=== PATIENT | male | born 1945 | race Caucasian/White ===

== ENCOUNTER 2022-12-31 00:31 | Observation (INO) ==
[2022-12-31] MEDS ORDERED: GADOBENATE DIMEGLUMINE 20 ML/VIAL IV ONE (00:32)
[2022-12-31] MEDS ORDERED: IOPAMIDOL 100 ML BOTTLE IV ONE (00:32)
[2022-12-31] MEDS ORDERED: ONDANSETRON 4 MG/2 ML VIAL IV ONE ×2 (00:53→01:21)
[2022-12-31] MEDS ORDERED: ONDANSETRON 4 MG/2 ML VIAL ONE (00:56)
[2022-12-31] MEDS ORDERED: fentaNYL 100 MCG/2 ML VIAL IV ONE ×2 (01:20→04:17)
[2022-12-31] MEDS ORDERED: 0.9 % SODIUM CHLORIDE 1,000 ML IV ONE (01:20)
--- NOTE | 2022-12-31 01:37 | Emergency Department Note ---
Abdominal Pain HPI General Chief Complaint: Abdominal Pain Stated Complaint: gas pains Time Seen by Provider: 12/31/22 00:59 Source: patient Mode of arrival: ambulatory History of Present Illness HPI Narrative: Narrative: 77-year-old male with sudden onset of subxiphoid pain after going to bed tonight. He had eaten approximately 6 PM had no discomfort had a normal appetite. Since the pain occurred he has vomited x4. He denies hematemesis. His last normal bowel movement was today and he denies any melena or hematochezia. 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 Related Data Previous Rx's Medication Instructions Recorded nebulizer #1 ea 04/11/21 amlodipine 5 mg tablet 5 mg PO QDAY 90 days #90 tabs 01/22/22 hydrochlorothiazide 12.5 mg tablet 12.5 mg PO QDAY #90 tabs 01/22/22 losartan 100 mg tablet 100 mg PO QDAY 90 days #90 tabs 01/22/22 Breztri Aerosphere 160 2 inh inhalation BID #10.7 grams 07/11/22 mcg-9mcg-4.8mcg/actuation HFA aerosol inhaler (sextoypxvg-wrlfojiy-vyucdkbyrm) umeclidinium 62.5 mcg/actuation 1 inh inhalation QDAY #30 ea 07/20/22 blister powder for inhalation (Incruse Ellipta) omeprazole 20 mg capsule,delayed 20 mg PO QAM 90 days #90 caps 09/18/22 release albuterol sulfate 90 mcg/actuation 2 puff inhalation Q6H #8.5 grams 10/25/22 aerosol inhaler (ProAir HFA) dexamethasone 6 mg tablet 6 mg PO QDAY #10 tabs 11/06/22 albuterol sulfate 2.5 mg/3 mL 2.5 mg (3 mL) inhalation BID #180 11/30/22 (0.083 %) solution for nebulization mL Allergies Allergy/AdvReac Type Severity Reaction Status Date / Time Penicillins Allergy Unknown childhood Verified 11/06/22 10:49 reaction meloxicam AdvReac Intermediate Heartburn Verified 11/06/22 10:49 Review of Systems ROS ROS Narrative: Narrative: All systems ED: reviewed and negative except as stated. [facility] Narrative Patient History Narrative: Narrative: Medical/Surgical/Family History All Active Problems (Updated 12/31/22 @ 04:31 by Gomez Ugarte MD) Pancreatic mass (Acute) Lung nodules (Chronic) Nocturnal hypoxia (Chronic) Severe chronic obstructive pulmonary disease (Acute) Medicare annual wellness visit, subsequent (Acute) History of gastrointestinal stromal tumor (GIST) (Chronic) Erectile dysfunction (Chronic) Chronic back pain (Chronic) Essential hypertension (Chronic) History of tobacco abuse (Chronic) Obesity (Chronic) Osteoarthritis (Chronic) Alcohol abuse (Chronic) History of tonsillectomy (Chronic) History of open reduction and internal fixation (ORIF) procedure (Chronic) History of adenoidectomy (Chronic) Fracture tibia/fibula (Chronic) Radial fracture (Chronic) Patellar fracture (Chronic) Gastroesophageal reflux (Chronic) Chronic obstructive pulmonary disease (Chronic) Ankle fracture (Chronic) Medical History Alcohol abuse Ankle fracture Closed, L Chronic back pain Chronic obstructive pulmonary disease Erectile dysfunction Essential hypertension Fracture tibia/fibula Closed, L Gastroesophageal reflux History of gastrointestinal stromal tumor (GIST) Laparotomy February 2020. History of tobacco abuse Lung nodules Medicare annual wellness visit, subsequent Obesity Osteoarthritis Patellar fracture Closed, L Radial fracture Closed, L Severe chronic obstructive pulmonary disease Surgical History History of adenoidectomy History of open reduction and internal fixation (ORIF) procedure L knee/L LE/L ankle - accident History of surgery (~02/26/20) Excision of malignant tumor of stomach by Dr. Pete Toledo History of tonsillectomy Family History Mother , at 84Y Essential hypertension Congestive heart failure Father , at 49Y Motor vehicle accident Sister Diabetes mellitus Social History Smoking Status: Former smoker Alcohol Intake Frequency: 2+ drinks per day Substance Use: does not use Exam Narrative Narrative: Narrative: General: No acute distress alert and oriented x3 answers questions cogently. Skin hyperpigmented redundant skin folds subsequent to losing weight after his GIST tumor was removed midline scar consistent with history no exanthems. Abdomen positive bowel sounds soft tender in the supraumbilical area without rebound CVA or psoas tenderness no masses no hepatosplenomegaly. Course Vital Signs Vital signs: Vital Signs Temperature 97.4 F 12/31/22 00:32 Pulse Rate 78 12/31/22 00:32 Respiratory Rate 24 H 12/31/22 00:32 Blood Pressure 180/72 12/31/22 00:32 Pulse Oximetry (%) 95 12/31/22 00:32 Oxygen Delivery Method Room Air 12/31/22 00:32 Temperature 97.4 F 12/31/22 00:32 Pulse Rate 92 H 12/31/22 03:31 Respiratory Rate 22 12/31/22 00:57 Blood Pressure 135/73 12/31/22 03:31 Pulse Oximetry (%) 94 12/31/22 03:31 Oxygen Delivery Method Room Air 12/31/22 00:57 [facility] MDM Narrative Medical decision making narrative: Narrative: Patient was treated with Zofran x2 and fentanyl 50 mcg iv, to examine him. His tenderness was in the supraumbilical area. CT showed a circumscribed low-density mass in the pancreatic mid body measuring 2.1 cm x 1.3 cm x 1.3 cm that was not present on the prior study. Gallbladder with cholelithiasis, but no ductal dilatation. Radiologist suggested a MRI study to further typify the pancreatic mass. Blood work showed a leukocytosis with 16.7 thousand white count and a left shift. Blood cultures were obtained and patient treated with Levaquin and Flagyl. His electrolytes were nl , except K 3.1, normal anion gap, BS 181, amylase and lipase normal at 78 and 22. Urine is pending at this time. Patient's history and physical exam are consistent with a pancreatitis. The hyperglycemia is a new finding, may represent imflammation of the pancreas, versus steroid use, that is in his list of medications. Patient was retreated for pain and MRI was ordered for first thing in the morning. Dr. Ugarte who resected the GIST tumor was contacted. Sepsis Sepsis Identified: No Lab Data 12/31/22 01:29 12/31/22 01:29 Labs: Lab Results 12/31/22 12/31/22 12/31/22 Range/Units 01:29 01:29 01:48 WBC 16.7 H (4.5-11.0) K/mcL RBC 5.05 (4.63-6.08) M/mcL Hgb 15.0 (13.7-17.5) g/dL Hct 44.5 (40.1-51.0) % MCV 88.1 (80.0-100.0) fL MCH 29.7 (26.0-34.0) pg MCHC 33.7 (31.0-36.0) g/dL RDW 12.7 (11.5-14.5) % Plt Count 300 (140-440) K/mcL MPV 11.4 (8.8-12.5) fL Immature Gran % (Auto) 0.6 H (0.0-0.5) % Neut % (Auto) 82.2 H (38.0-78.0) % Lymph % (Auto) 10.3 L (15.5-49.0) % [place] % (Auto) 4.7 (1.0-12.0) % Eos % (Auto) 1.5 (0.0-7.0) % Baso % (Auto) 0.7 (0.0-2.0) % Lymph # (Auto) 1.72 (1.50-4.80) K/mcL [place] # (Auto) 0.78 (0.10-0.90) K/mcL Eos # (Auto) 0.25 (0.00-0.70) K/mcL Baso # (Auto) 0.11 (0.00-0.30) K/mcL Immature Gran # 0.10 H (0.00-0.05) K/mcl Absolute Neutrophils 13.70 H (1.80-8.00) K/mcL Sodium 134 (133-145) mmol/L Potassium 3.1 L (3.3-5.1) mmol/L Chloride 95 L (96-108) mmol/L Carbon Dioxide 25 (22-30) mmol/L Anion Gap 14.0 (8.0-16.0) BUN 19 (8-23) mg/dL Creatinine 1.1 (0.7-1.2) mg/dL POC Creatinine 1.2 (0.6-1.2) GFR Calculation 64 Glucose 181 H (70-105) mg/dL Calcium 9.2 (8.6-10.4) mg/dL Total Bilirubin 0.7 (0.1-1.0) mg/dL AST 21 (<40) U/L ALT 20 (<40) U/L Alkaline Phosphatase 89 (39-117) U/L Total Protein 7.8 (5.9-8.4) gm/dL Albumin 3.8 (3.2-5.2) gm/dL Globulin 4.0 H (2.2-3.7) gm/dL Albumin/Globulin Ratio 0.9 L (1.0-2.3) Amylase 78 (28-100) U/L Lipase 22 (7-60) U/L Discharge Plan Patient/Caregiver Discharge Instructions Pt seen by SUPERVISOR DIE CASTING/PA only: No Clinical Impression: Pancreatic mass Patient Disposition: Still a Patient Follow up with: Ortega Larry PA-C [Primary Care Provider] - Prescriptions: No Action amlodipine 5 mg tablet 5 mg PO QDAY 90 Days Qty: 90 3RF Rx Instructions: for high blood pressure losartan 100 mg tablet 100 mg PO QDAY 90 Days Qty: 90 3RF hydrochlorothiazide 12.5 mg tablet 12.5 mg tablet 12.5 mg PO QDAY Qty: 90 3RF Rx Instructions: to help lower blood pressure Incruse Ellipta 62.5 mcg/actuation blister with device 1 inh INHALATION QDAY Qty: 30 6RF omeprazole 20 mg capsule,delayed release(DR/EC) 20 mg PO QAM 90 Days Qty: 90 1RF Rx Instructions: take first thing in the AM, report any breakthrough heartburn albuterol sulfate [ProAir HFA] 90 mcg/actuation HFA aerosol inhaler 2 puff INHALATION Q6H Qty: 8.5 2RF Rx Instructions: administer with spacer albuterol sulfate 2.5 mg /3 mL (0.083 %) solution for nebulization 2.5 mg inhalation BID Qty: 180 1RF (DME) nebulizer See Rx Instructions .Route .MEDSUPPLY Qty: 1 0RF Rx Instructions: As directed dexamethasone 6 mg tablet 6 mg PO QDAY Qty: 10 0RF Breztri Aerosphere 160-9-4.8 mcg/actuation HFA aerosol inhaler 2 inh inhalation BID Qty: 10.7 12RF Rx Instructions: Rinse and clear mouth after use.
[2022-12-31 02:01] LABS: Basophils # (Auto) 0.11 K/mcL (0.00-0.30); Basophils % (Auto) 0.7 % (0.0-2.0); Eosinophils # (Auto) 0.25 K/mcL (0.00-0.70); Eosinophils % (Auto) 1.5 % (0.0-7.0); Hematocrit 44.5 % (40.1-51.0); Lymphocytes # (Auto) 1.72 K/mcL (1.50-4.80); Lymphocytes % (Auto) 10.3 % (15.5-49.0); Mean Cell Volume 88.1 fL (80.0-100.0); Mean Corpuscular HGB Conc 33.7 g/dL (31.0-36.0); Mean Platelet Volume 11.4 fL (8.8-12.5); Monocytes # (Auto) 0.78 K/mcL (0.10-0.90); Monocytes % (Auto) 4.7 % (1.0-12.0); Neutrophils % (Auto) 82.2 % (38.0-78.0); Platelet Count 300 K/mcL (140-440); RBC 5.05 M/mcL (4.63-6.08); Red Cell Distribution Width 12.7 % (11.5-14.5); WBC 16.7 K/mcL (4.5-11.0)
[2022-12-31 02:17] LABS: ALT/SGPT 20 U/L (<40); AST/SGOT 21 U/L (<40); Albumin 3.8 gm/dL (3.2-5.2); Albumin/Globulin Ratio 0.9 (1.0-2.3); Alkaline Phosphatase 89 U/L (39-117); Amylase 78 U/L (28-100); Bilirubin,Total 0.7 mg/dL (0.1-1.0); Blood Urea Nitrogen 19 mg/dL (8-23); Calcium 9.2 mg/dL (8.6-10.4); Carbon Dioxide 25 mmol/L (22-30); Chloride 95 mmol/L (96-108); Glomerular Filtration Rate 64; Glucose 181 mg/dL (70-105)
[2022-12-31] MEDS ORDERED: LEVOFLOXACIN 750 MG/150 ML BAG IV ONE (04:22)
[2022-12-31] MEDS ORDERED: POTASSIUM CHLORIDE 20 MEQ in DEXTROSE 5% IN WATER 250 ML IV ONE (05:14)
[2022-12-31] MEDS ORDERED: metroNIDAZOLE 500 MG/100 ML BAG IV ONE (05:17)
[2022-12-31 07:26] LABS: Appearance,Urine CLEAR (Clear); Bilirubin,Urine Negative (Negative); Color,Urine YELLOW; Culture Indicated,Urine No; Glucose,Urine (UA) Negative (Negative); Ketones,Urine Negative (Negative); Leukocyte Esterase,Urine Negative /uL (Negative); Nitrate,Urine Negative (Negative); Protein,Urine Negative (Negative); Specific Gravity,Urine 1.031 (1.000-1.035); Urine Blood Negative (Negative)
--- NOTE | 2022-12-31 08:48 | XRay Report ---
CLINICAL INFORMATION: COPD dyspnea COMPARISON: None. TECHNIQUE: Portable FINDINGS: The heart size, mediastinum and pulmonary vessels are unremarkable. The COPD changes noted. Bibasilar infiltrates have improved considerably since the examination nearly 2 months ago with only a small residual in the left base. Tiny bilateral pleural effusions noted.. The bones and soft tissues are within normal limits. IMPRESSION: COPD. Near-complete resolution of bibasilar infiltrates. Small residual in the left base. Interpreted and Authenticated by: Buzz Melendez 12/31/22
--- NOTE | 2022-12-31 09:56 | Cat Scan Report ---
CLINICAL INFORMATION: Increased white blood cell count and abdominal pain. History of gastric GIST tumor resected three years prior COMPARISON: Preoperative Abdomen and pelvic CT 01/18/2020. TECHNIQUE: Following enteric contrast, 80 cc of Isovue-370 were injected intravenously, and 60 seconds later, 0.625 mm helical slices were obtained from the mid heart through the subtrochanteric regions. Following reconstruction, 2.5 mm sagittal, coronal and axial reformatted images were processed and reviewed at bone, lung and soft tissue windows. Five minutes later, 0.625 mm helical slices were obtained from the mid heart through the kidneys and viewed at soft tissue windows.The exam was performed using radiation dose optimization techniques including, but not limited to, automated exposure control, adjustment of the mA and/or kV according to patient size and use of iterative reconstruction technique. FINDINGS: The lung bases show scattered bullae and fibrosis compatible COPD. There are no infiltrates or nodules.. No effusions. The visualized heart is grossly normal. Abdominal images show 3-4 faintly calcified stones in the gallbladder neck ranging up to 8 mm. The gallbladder is, otherwise, normal. There is no evidence of wall thickening or pericholecystic fluid to suggest cholecystitis. Intrahepatic and common bile ducts are normal caliber: CBD is 5 mm. Mild fatty change seen within the liver with 3-4 tiny simple cysts but no hepatic metastases. There is mild pancreatic atrophy. A 20 mm cyst, in the pancreatic body, has developed since the previous exam. Bilateral renal cysts are stable. No significant renal abnormality. Both adrenal glands and spleen are normal. A stenosis approximately 50% is seen within the infrarenal abdominal aorta.. Patient may be at risk for Leriche's syndrome. There is moderate fibrofatty calcific plaque in the aortic branches. Pelvic images show marked prostate enlargement spanning 7 x 5.4 cm which has increased from previous exam. There is a 4 cm sessile mass in the urinary bladder base adjacent to the prostate base which was also seen on the previous examination. It is most likely invagination of hypertrophied prostate tissue. There is mild diffuse wall thickening of the urinary bladder suggesting bladder outlet narrowing due to prostatism. Since the previous examination, the large necrotic GIST tumor has been resected from the greater curvature of the gastric body. This region shows surgical stables, but no evidence of residual or recurrent tumor. The remaining stomach, small large bowel are grossly normal with the exception of few sigmoid diverticuli. There is no free air, free fluid or adenopathy. Bone windows show no metastases. A 7 mm calcified dural-based mass in the posterior central canal at L3 is likely a small calcified meningioma. IMPRESSION: 1. No evidence of infection or other cause identified for elevated white blood cell count. 2. Complete resection of exophytic GIST tumor from the greater curvature of the gastric body since comparison preoperative CT three years ago. No evidence of residual or recurrent tumor, adenopathy or metastases. 3. Greater than 50% stenosis of the infrarenal abdominal aorta. Patient is at risk for Leriche's syndrome. Suggest abdominal aortic ultrasound. 4. 2 cm cystic lesion in the pancreatic body developing since previous CT. This is likely a simple cyst, a low-grade IPMN is not excluded. Consider follow-up CT in one year for reevaluation. 5. Cholelithiasis. 6. COPD changes in the lung bases. 7. Marked prostate enlargement. 4 cm sessile mass adjacent the prostate base invaginating the urinary bladder has increased slightly from previous exam. It is likely hypertrophied prostate tissue. A bladder polyp is possible, but less likely, consider urology referral. Interpreted and Authenticated by: Buzz Melendez 12/31/22
--- NOTE | 2022-12-31 10:17 | Magnetic Resonance Report ---
CLINICAL HISTORY: History of GIST gastric tumor resection. Elevated white blood cell count. 20 mm cystic lesion in the pancreatic body on recent CT TECHNIQUE: Axial diffusion, phase-in phase out, lava pre and dynamic post gadolinium, SSFSE, T2, and coronal SSFSE and FSPGR coronal pre and postcontrast images were acquired of the upper abdomen FINDINGS: There are 3-4 small stones in the gallbladder less than 5 mm. The gallbladder is normal size and wall thickness without evidence of cholecystitis. Intrahepatic common hepatic and common bile ducts are normal caliber CBD is 5 mm there are three small cysts less than 3 mm seen within the liver. Liver is otherwise normal-no evidence of metastases. Simple cysts in both kidneys are unremarkable. Both kidneys are normal in size configuration and signal intensity. Both adrenal glands and spleen are normal. There is a 50% stenosis of the infrarenal abdominal aorta due to eccentric plaque. The celiac, SMA, renal arteries are widely patent. A 20 mm well-circumscribed lesion in the pancreatic body follows water on all sequences. It has a thin uniform wall and no solid components. It is most compatible with a simple cyst. The pancreatic duct is normal-2 mm. GIST tumor resected from the greater curvature gastric body noted. No evidence residual or recurrent tumor. There is no free air, free fluid or adenopathy. The visualized small and large bowel are normal. IMPRESSION: 1. 20 mm cystic lesion in the pancreas has features of a benign simple cyst. Suggest follow-up abdomen CT scan in one year for reevaluation. Low-grade IPMN is still possible but extraordinarily unlikely 2. Cholelithiasis. Gallbladder and bile ducts are, otherwise, normal. 3. Status post resection of GIST tumor from the greater curvature of the gastric body. No evidence of residual/recurrent tumor adenopathy or metastases. 4. Simple cysts in both kidneys-stable. Interpreted and Authenticated by: Buzz Melendez 12/31/22
--- NOTE | 2022-12-31 10:20 | Ultrasound Report ---
CLINICAL INFORMATION: Right upper quadrant pain COMPARISON: None. FINDINGS: Gallbladder wall is equivocally thickened (3.5 mm) but without focal tenderness or pericholecystic fluid.. There are multiple small stones within the gallbladder ranging up to 1.5 cm. Common bile duct is normal at 3 mm. The liver is normal in size and echotexture. Pancreas was not visualized. No free fluid. IMPRESSION: Cholelithiasis, but no definite evidence for cholecystitis Interpreted and Authenticated by: Buzz Melendez 12/31/22
[2022-12-31] MEDS ORDERED: ONDANSETRON 4 MG/2 ML VIAL IV PRN (11:16)
--- NOTE | 2022-12-31 11:26 | Emergency Department Note ---
Course Course Course Narrative: Patient is a 77-year-old male with a history of GIST tumor and COPD who presents to the emergency department due to abdominal pain. Patient was signed out to me by Dr. Ugarte. At signout there was concern for a possible pancreatic tumor and MRI of the abdomen was pending. Vital Signs Vital signs: Vital Signs Temperature 97.4 F 12/31/22 00:32 Pulse Rate 78 12/31/22 00:32 Respiratory Rate 24 H 12/31/22 00:32 Blood Pressure 180/72 12/31/22 00:32 Pulse Oximetry (%) 95 12/31/22 00:32 Oxygen Delivery Method Room Air 12/31/22 00:32 Temperature 97.4 F 12/31/22 00:32 Pulse Rate 77 12/31/22 11:14 Respiratory Rate 22 12/31/22 00:57 Blood Pressure 120/95 12/31/22 10:31 Pulse Oximetry (%) 97 12/31/22 11:14 Oxygen Delivery Method Room Air 12/31/22 00:57 MDM MDM Narrative Medical decision making narrative: Narrative: Patient is a 77-year-old male who presented to the emergency department for abdominal pain. On my examination patient does have right upper quadrant pain and positive Benavides sign. I performed a bedside ultrasound which demonstrated thickened gallbladder wall and gallstones. An official ultrasound was ordered and demonstrated thickened gallbladder wall and stones. Patient does have a leukocytosis of 16.7. Dr. Ugarte had discussed patient with Dr. Barillas in [place] who is a hepatobiliary specialist. Dr. Barillas looked at patient's MRI and I spoke to him again. He stated that work-up of this cystic mass could be done outpatient and that he would follow-up with the patient. He did recommend discussing gallbladder concerns with surgery. I discussed patient with Dr. Con Ugarte. He agreed to see and evaluate patient for admission. Lab Data 12/31/22 01:29 12/31/22 01:29 Labs: Lab Results 12/31/22 12/31/22 12/31/22 Range/Units 01:29 01:29 01:48 WBC 16.7 H (4.5-11.0) K/mcL RBC 5.05 (4.63-6.08) M/mcL Hgb 15.0 (13.7-17.5) g/dL Hct 44.5 (40.1-51.0) % MCV 88.1 (80.0-100.0) fL MCH 29.7 (26.0-34.0) pg MCHC 33.7 (31.0-36.0) g/dL RDW 12.7 (11.5-14.5) % Plt Count 300 (140-440) K/mcL MPV 11.4 (8.8-12.5) fL Immature Gran % (Auto) 0.6 H (0.0-0.5) % Neut % (Auto) 82.2 H (38.0-78.0) % Lymph % (Auto) 10.3 L (15.5-49.0) % [place] % (Auto) 4.7 (1.0-12.0) % Eos % (Auto) 1.5 (0.0-7.0) % Baso % (Auto) 0.7 (0.0-2.0) % Lymph # (Auto) 1.72 (1.50-4.80) K/mcL [place] # (Auto) 0.78 (0.10-0.90) K/mcL Eos # (Auto) 0.25 (0.00-0.70) K/mcL Baso # (Auto) 0.11 (0.00-0.30) K/mcL Immature Gran # 0.10 H (0.00-0.05) K/mcl Absolute Neutrophils 13.70 H (1.80-8.00) K/mcL Sodium 134 (133-145) mmol/L Potassium 3.1 L (3.3-5.1) mmol/L Chloride 95 L (96-108) mmol/L Carbon Dioxide 25 (22-30) mmol/L Anion Gap 14.0 (8.0-16.0) BUN 19 (8-23) mg/dL Creatinine 1.1 (0.7-1.2) mg/dL POC Creatinine 1.2 (0.6-1.2) GFR Calculation 64 Glucose 181 H (70-105) mg/dL Calcium 9.2 (8.6-10.4) mg/dL Total Bilirubin 0.7 (0.1-1.0) mg/dL AST 21 (<40) U/L ALT 20 (<40) U/L Alkaline Phosphatase 89 (39-117) U/L Total Protein 7.8 (5.9-8.4) gm/dL Albumin 3.8 (3.2-5.2) gm/dL Globulin 4.0 H (2.2-3.7) gm/dL Albumin/Globulin Ratio 0.9 L (1.0-2.3) Amylase 78 (28-100) U/L Lipase 22 (7-60) U/L Urine Color Urine Appearance (Clear) Urine pH (5.0-9.0) Ur Specific [place] (1.000-1.035) Urine Protein (Negative) mg/dL Urine Glucose (UA) (Negative) mg/dL Urine Ketones (Negative) mg/dL Urine Occult Blood (Negative) mg/dL Urine Nitrate (Negative) Urine Bilirubin (Negative) mg/dL Urine Urobilinogen mg/dL Ur Leukocyte Esterase (Negative) /uL Ur Culture Indicated? 12/31/22 Range/Units 06:25 WBC (4.5-11.0) K/mcL RBC (4.63-6.08) M/mcL Hgb (13.7-17.5) g/dL Hct (40.1-51.0) % MCV (80.0-100.0) fL MCH (26.0-34.0) pg MCHC (31.0-36.0) g/dL RDW (11.5-14.5) % Plt Count (140-440) K/mcL MPV (8.8-12.5) fL Immature Gran % (Auto) (0.0-0.5) % Neut % (Auto) (38.0-78.0) % Lymph % (Auto) (15.5-49.0) % [place] % (Auto) (1.0-12.0) % Eos % (Auto) (0.0-7.0) % Baso % (Auto) (0.0-2.0) % Lymph # (Auto) (1.50-4.80) K/mcL [place] # (Auto) (0.10-0.90) K/mcL Eos # (Auto) (0.00-0.70) K/mcL Baso # (Auto) (0.00-0.30) K/mcL Immature Gran # (0.00-0.05) K/mcl Absolute Neutrophils (1.80-8.00) K/mcL Sodium (133-145) mmol/L Potassium (3.3-5.1) mmol/L Chloride (96-108) mmol/L Carbon Dioxide (22-30) mmol/L Anion Gap (8.0-16.0) BUN (8-23) mg/dL Creatinine (0.7-1.2) mg/dL POC Creatinine (0.6-1.2) GFR Calculation Glucose (70-105) mg/dL Calcium (8.6-10.4) mg/dL Total Bilirubin (0.1-1.0) mg/dL AST (<40) U/L ALT (<40) U/L Alkaline Phosphatase (39-117) U/L Total Protein (5.9-8.4) gm/dL Albumin (3.2-5.2) gm/dL Globulin (2.2-3.7) gm/dL Albumin/Globulin Ratio (1.0-2.3) Amylase (28-100) U/L Lipase (7-60) U/L Urine Color Yellow Urine Appearance Clear (Clear) Urine pH 6.0 (5.0-9.0) Ur Specific [place] 1.031 (1.000-1.035) Urine Protein Negative (Negative) mg/dL Urine Glucose (UA) Negative (Negative) mg/dL Urine Ketones Negative (Negative) mg/dL Urine Occult Blood Negative (Negative) mg/dL Urine Nitrate Negative (Negative) Urine Bilirubin Negative (Negative) mg/dL Urine Urobilinogen 4.0 A mg/dL Ur Leukocyte Esterase Negative (Negative) /uL Ur Culture Indicated? No ED POC Tests ED POC Tests: PEPE - SARS Antigen Negative Discharge Plan Patient/Caregiver Discharge Instructions Pt seen by PROGRAMMER ANALYST/PA only: No Clinical Impression: Acute cholecystitis, Mass of pancreas Patient Disposition: Still a Patient Follow up with: Ortega Larry PA-C [Primary Care Provider] - Prescriptions: No Action amlodipine 5 mg tablet 5 mg PO QDAY 90 Days Qty: 90 3RF Rx Instructions: for high blood pressure losartan 100 mg tablet 100 mg PO QDAY 90 Days Qty: 90 3RF hydrochlorothiazide 12.5 mg tablet 12.5 mg tablet 12.5 mg PO QDAY Qty: 90 3RF Rx Instructions: to help lower blood pressure omeprazole 20 mg capsule,delayed release(DR/EC) 20 mg PO QAM 90 Days Qty: 90 1RF Rx Instructions: take first thing in the AM, report any breakthrough heartburn albuterol sulfate [ProAir HFA] 90 mcg/actuation HFA aerosol inhaler 2 puff INHALATION Q6H Qty: 8.5 2RF Rx Instructions: administer with spacer albuterol sulfate 2.5 mg /3 mL (0.083 %) solution for nebulization 2.5 mg inhalation BID Qty: 180 1RF fluticasone propion-salmeterol [Advair Diskus] 250-50 mcg/dose blister with device 1 inh inhalation BID Qty: 60 6RF Incruse Ellipta 62.5 mcg/actuation blister with device 1 inh INHALATION QDAY Qty: 30 6RF (DME) nebulizer See Rx Instructions .Route .MEDSUPPLY Qty: 1 0RF Rx Instructions: As directed dexamethasone 6 mg tablet 6 mg PO QDAY Qty: 10 0RF
[2022-12-31] MEDS: 0.9 % SODIUM CHLORIDE 1,000 ML IV SCH ×2 (12:52→21:40)
[2022-12-31] MEDS ORDERED: fentaNYL 100 MCG/2 ML VIAL IV PRN (16:05)
[2022-12-31] MEDS ORDERED: ALBUTEROL SULFATE 60 PUFF INHALER INH PRN (16:15)
--- NOTE | 2022-12-31 16:22 | General Surg History&Physical ---
HPI History of Present Illness Patient information: Note initiated : 12/31/22 at 4:13 pm Service Date, if different from initiated Date: [] Patient: Tani Coyne a 77 y/o M admitted on 12/31/22 for gas pains. Chief Complaint: [] Chief complaint: Abdominal pain nausea and vomiting History of present illness: Mr. Coyne is a 77 year old M admitted with cholecystitis with cholelithiasis. Patient had onset of epigastric and right upper quadrant pain last evening. This was followed by 4 episodes of nausea and vomiting. Because of increasing pain and nausea he was seen in the emergency room where he was noted to have a tender epigastrium and right upper quadrant. Ultrasound confirmed gallstone disease with mildly thickened gallbladder and stones in the gallbladder. Patient has not had similar episodes in the past. His white blood count is 16,000. His LFTs are normal. Patient is admitted and will be treated with antibiotics tonight. He will have an attempt at laparoscopic cholecystectomy tomorrow. If I cannot get safely laparoscopic access he will have a standard right subcostal incision with open cholecystectomy. Review of Systems All systems: reviewed and no additional remarkable complaints except as stated Constitutional Constitutional: Present anorexia, fatigue, malaise and weight loss EENT Ears: Present decreased hearing Nose, mouth and throat: Present abnormal hearing Respiratory Respiratory: Present cough, dyspnea on exertion, wheezing and chest congestion Gastrointestinal Gastrointestinal: Present abdominal pain, dyspepsia, nausea and vomiting Integumentary Integumentary: Absent new lesions, pruritus or unusual bruising Neurological Neurological: Absent dizziness, numbness, syncope or tingling Psychiatric Psychiatric: Absent confusion, depression or memory loss Hematologic/Lymphatic Hematologic/Lymphatic: Absent easy bleeding, easy bruising or lymphadenopathy Allergic/Immunologic Allergic/Immunologic: Absent throat swelling, uticaria or wheezing PFSH PFSH All Active Problems (Updated 12/31/22 @ 16:21 by Rashid Ugarte MD) Cholelithiasis and cholecystitis without obstruction (Acute) Pancreatic mass (Acute) Acute cholecystitis (Acute) Lung nodules (Chronic) Nocturnal hypoxia (Chronic) Severe chronic obstructive pulmonary disease (Acute) Medicare annual wellness visit, subsequent (Acute) History of gastrointestinal stromal tumor (GIST) (Chronic) Erectile dysfunction (Chronic) Chronic back pain (Chronic) Essential hypertension (Chronic) History of tobacco abuse (Chronic) Obesity (Chronic) Osteoarthritis (Chronic) Alcohol abuse (Chronic) History of tonsillectomy (Chronic) History of open reduction and internal fixation (ORIF) procedure (Chronic) History of adenoidectomy (Chronic) Fracture tibia/fibula (Chronic) Radial fracture (Chronic) Patellar fracture (Chronic) Gastroesophageal reflux (Chronic) Chronic obstructive pulmonary disease (Chronic) Ankle fracture (Chronic) Medical History Alcohol abuse Ankle fracture Closed, L Chronic back pain Chronic obstructive pulmonary disease Erectile dysfunction Essential hypertension Fracture tibia/fibula Closed, L Gastroesophageal reflux History of gastrointestinal stromal tumor (GIST) Laparotomy February 2020. History of tobacco abuse Lung nodules Medicare annual wellness visit, subsequent Obesity Osteoarthritis Patellar fracture Closed, L Radial fracture Closed, L Severe chronic obstructive pulmonary disease Surgical History History of adenoidectomy History of open reduction and internal fixation (ORIF) procedure L knee/L LE/L ankle - accident History of surgery (~02/26/20) Excision of malignant tumor of stomach by Dr. Pete Toledo History of tonsillectomy Family History Mother , at 84Y Essential hypertension Congestive heart failure Father , at 49Y Motor vehicle accident Sister Diabetes mellitus Social History household members: spouse housing: house lives independently: Yes marital status: education level: high school service: No occupational status: retired occupation: [employer], retired in 2007 other: Children, 2 EXT/GC5 eating out: rarely or never physical activity: walking smoking status: Former smoker quit date: 12/24/08 alcohol intake frequency: 2+ drinks per day substance use type: does not use jazmine/hinduism: None seatbelt use: always MEDS/ALLERGIES Home Medications and Allergies Home Medications Medication Instructions Recorded Confirmed Type nebulizer #1 ea 04/11/21 12/31/22 Rx amlodipine 5 mg tablet 5 mg PO QDAY 90 days #90 tabs 01/22/22 12/31/22 Rx losartan 100 mg tablet 100 mg PO QDAY 90 days #90 tabs 01/22/22 12/31/22 Rx omeprazole 20 mg capsule,delayed 20 mg PO QAM 90 days #90 caps 09/18/22 12/31/22 Rx release albuterol sulfate 90 mcg/actuation 2 puff inhalation Q6H #8.5 grams 10/25/22 12/31/22 Rx aerosol inhaler (ProAir HFA) albuterol sulfate 2.5 mg/3 mL 2.5 mg (3 mL) inhalation BID #180 11/30/22 12/31/22 Rx (0.083 %) solution for nebulization mL Advair Diskus 250 mcg-50 mcg/dose 1 inh inhalation BID #60 ea 12/31/22 12/31/22 Rx powder for inhalation (fluticasone propion-salmeterol) hydrochlorothiazide 12.5 mg tablet 12.5 mg PO QDAY 12/31/22 12/31/22 History umeclidinium 62.5 mcg/actuation 1 inh inhalation QDAY #30 ea 12/31/22 12/31/22 Rx blister powder for inhalation (Incruse Ellipta) Allergies Allergy/AdvReac Type Severity Reaction Status Date / Time Penicillins Allergy Unknown childhood Verified 11/06/22 10:49 reaction meloxicam AdvReac Intermediate Heartburn Verified 11/06/22 10:49 Physical Examination Vital Signs Vital signs: Temp Pulse Resp BP Pulse Ox O2 Del Method O2 Flow Rate 98.4 F 80 18 125/67 92 Room Air 1 12/31/22 12:29 12/31/22 12:29 12/31/22 12:29 12/31/22 12:29 12/31/22 12:29 12/31/22 12:29 12/31/22 11:51 General physical appearance General physical exam: no distress, moderate pain, cachectic and chronically ill Eyes Eye exam: PERRL and normal ocular movement; negative icteric ENT ENT exam: normal mucosa and other (Edentulous); negative no congestion Head Head exam IM: Present atraumatic, normal inspection and normocephalic Neck Neck exam: no masses, no bruits, trachea midline, no lymphadenopathy and no venous distension Cardiovascular Cardiovascular exam IM: Present normal rate and rhythm, RRR, +S1 and +S2; Absent JVD Respiratory Respiratory exam: normal expansion, normal respiratory effort and clear to auscultation Abdomen Abdomen: Present tender (Epigastric and right upper quadrant) Integumentary Integumentary: Present no rash, no growths and no abnormal pigmentation Neurologic Neurologic: Present normal coordination and normal sensation Musculoskeletal Musculoskeletal: Present normal gait and normal posture Psychiatric Psychiatric: Present oriented to time, oriented to person, oriented to place, speech is normal and memory intact Results Labs 12/31/22 01:29 12/31/22 01:29 Labs: Abnormal lab results 12/31/22 12/31/22 12/31/22 Range/Units 01:29 01:29 06:25 WBC 16.7 H (4.5-11.0) K/mcL Immature Gran % (Auto) 0.6 H (0.0-0.5) % Neut % (Auto) 82.2 H (38.0-78.0) % Lymph % (Auto) 10.3 L (15.5-49.0) % Immature Gran # 0.10 H (0.00-0.05) K/mcl Absolute Neutrophils 13.70 H (1.80-8.00) K/mcL Potassium 3.1 L (3.3-5.1) mmol/L Chloride 95 L (96-108) mmol/L Glucose 181 H (70-105) mg/dL Globulin 4.0 H (2.2-3.7) gm/dL Albumin/Globulin Ratio 0.9 L (1.0-2.3) Urine Urobilinogen 4.0 A mg/dL Diabetes panel 12/31/22 Range/Units 01:29 Sodium 134 (133-145) mmol/L Potassium 3.1 L (3.3-5.1) mmol/L Chloride 95 L (96-108) mmol/L Carbon Dioxide 25 (22-30) mmol/L BUN 19 (8-23) mg/dL Creatinine 1.1 (0.7-1.2) mg/dL Glucose 181 H (70-105) mg/dL Calcium 9.2 (8.6-10.4) mg/dL AST 21 (<40) U/L ALT 20 (<40) U/L Alkaline Phosphatase 89 (39-117) U/L Total Protein 7.8 (5.9-8.4) gm/dL Albumin 3.8 (3.2-5.2) gm/dL Calcium panel 12/31/22 Range/Units 01:29 Calcium 9.2 (8.6-10.4) mg/dL Albumin 3.8 (3.2-5.2) gm/dL Pituitary panel 12/31/22 Range/Units 01:29 Sodium 134 (133-145) mmol/L Potassium 3.1 L (3.3-5.1) mmol/L Chloride 95 L (96-108) mmol/L Carbon Dioxide 25 (22-30) mmol/L BUN 19 (8-23) mg/dL Creatinine 1.1 (0.7-1.2) mg/dL Glucose 181 H (70-105) mg/dL Calcium 9.2 (8.6-10.4) mg/dL Adrenal panel 12/31/22 Range/Units 01:29 Sodium 134 (133-145) mmol/L Potassium 3.1 L (3.3-5.1) mmol/L Chloride 95 L (96-108) mmol/L Carbon Dioxide 25 (22-30) mmol/L BUN 19 (8-23) mg/dL Creatinine 1.1 (0.7-1.2) mg/dL Glucose 181 H (70-105) mg/dL Calcium 9.2 (8.6-10.4) mg/dL Total Bilirubin 0.7 (0.1-1.0) mg/dL AST 21 (<40) U/L ALT 20 (<40) U/L Alkaline Phosphatase 89 (39-117) U/L Total Protein 7.8 (5.9-8.4) gm/dL Albumin 3.8 (3.2-5.2) gm/dL All other labs normal. A/P Assessment and plan (1) Cholelithiasis and cholecystitis without obstruction: Status: Acute (2) Severe chronic obstructive pulmonary disease: Status: Acute (3) Essential hypertension: Status: Chronic (4) Gastroesophageal reflux: Status: Chronic Qualifiers: Esophagitis presence: esophagitis presence not specified Qualified Code(s): K21.9 - Gastro-esophageal reflux disease without esophagitis (5) Chronic obstructive pulmonary disease: Status: Chronic Qualifiers: COPD type: unspecified COPD Qualified Code(s): J44.9 - Chronic obstructive pulmonary disease, unspecified Plan Cefepime 2 g every 8 hours Replace KCl IV Check CBC and inpatient panel in the morning N.p.o. after midnight Scheduled for cholecystectomy tomorrow Time Spent With Patient Time: Total time spent is greater than 50% in coordination of care (as documented) at patient's floor/unit and/or counseling patient:
[2022-12-31] MEDS: CEFEPIME 2 GM VIAL IV SCH ×2 (17:11→21:58)
[2022-12-31] MEDS: POTASSIUM CHLORIDE 40 MEQ in DEXTROSE 5% IN WATER 500 ML IV SCH ×2 (17:11→21:58)
[2022-12-31] MEDS: PANTOPRAZOLE 40 MG VIAL IV SCH (17:11)
[2022-12-31] MEDS: ALBUTEROL SULFATE 2.5 MG/3 ML NEBULIZER INH SCH (21:21)
[2022-12-31] MEDS: FLUTICASONE/SALMETEROL 250/50 INHALER #14 INH SCH (21:58)
[2023-01-01] MEDS: 0.9 % SODIUM CHLORIDE 1,000 ML IV SCH ×2 (04:50→15:57)
[2023-01-01] MEDS: CEFEPIME 2 GM VIAL IV SCH ×3 (06:26→23:14)
--- NOTE | 2023-01-01 07:00 | EKG ---
[facility] Test Date: 2022-12-31 Pat Name: Tani Coyne Department: [facility] Room: 109 Gender: Male Business Operations Director: : 1945 Requested By: Rashid Ugarte Order Number: [id number] Reading MD: Chano Murrieta Measurements Intervals [place] Rate: 85 P: 48 [place]: 129 QRS: 23 QRSD: 119 T: 5 QT: 396 QTc: 458 Interpretive Statements Sinus rhythm Multiple premature complexes, vent & supraven Incomplete right bundle branch block Low voltage, precordial leads Electronically Signed On 01-01-2023 7:00:18 PST by Chano Murrieta /store/M0/[id number]/[email or web address]/[id number]
[2023-01-01 07:16] LABS: Basophils # (Auto) 0.03 K/mcL (0.00-0.30); Basophils % (Auto) 0.3 % (0.0-2.0); Eosinophils # (Auto) 0.16 K/mcL (0.00-0.70); Eosinophils % (Auto) 1.7 % (0.0-7.0); Hematocrit 41.5 % (40.1-51.0); Hemoglobin 14.1 g/dL (13.7-17.5); Lymphocytes # (Auto) 0.62 K/mcL (1.50-4.80); Lymphocytes % (Auto) 6.5 % (15.5-49.0); Mean Cell Volume 87.4 fL (80.0-100.0); Mean Platelet Volume 10.2 fL (8.8-12.5); Monocytes # (Auto) 0.59 K/mcL (0.10-0.90); Monocytes % (Auto) 6.2 % (1.0-12.0); Neutrophils % (Auto) 84.7 % (38.0-78.0); Platelet Count 192 K/mcL (140-440); RBC 4.75 M/mcL (4.63-6.08); Red Cell Distribution Width 12.8 % (11.5-14.5); WBC 9.6 K/mcL (4.5-11.0)
[2023-01-01 07:37] LABS: ALT/SGPT 19 U/L (<40); AST/SGOT 22 U/L (<40); Albumin 3.3 gm/dL (3.2-5.2); Alkaline Phosphatase 67 U/L (39-117); Bilirubin,Direct 0.3 mg/dL (<0.3); Bilirubin,Total 0.9 mg/dL (0.1-1.0); Blood Urea Nitrogen 8 mg/dL (8-23); Calcium 8.9 mg/dL (8.6-10.4); Carbon Dioxide 29 mmol/L (22-30); Chloride 101 mmol/L (96-108); Globulin 3.3 gm/dL (2.2-3.7); Glomerular Filtration Rate 85; Glucose 99 mg/dL (70-105); Lactate Dehydrogenase 237 U/L (135-225); Phosphorous 2.3 mg/dL (2.5-4.5); Triglycerides 95 mg/dL (<150); Uric Acid 4.5 mg/dL (2.5-8.0)
[2023-01-01] MEDS ORDERED: SCOPOLAMINE 1 PATCH PATCH TOPICAL PRN (08:00)
[2023-01-01] MEDS: HYDROCHLOROTHIAZIDE 12.5 MG CAPSULE PO SCH (08:23)
[2023-01-01] MEDS: ACETAMINOPHEN 1,000 MG/100 ML BAG IV SCH ×3 (08:23→20:28)
[2023-01-01] MEDS: FLUTICASONE/SALMETEROL 250/50 INHALER #14 INH SCH ×2 (08:23→20:31)
[2023-01-01] MEDS: amLODIPine 5 MG TABLET PO SCH (08:23)
[2023-01-01] MEDS: LOSARTAN 50 MG TABLET PO SCH (08:23)
[2023-01-01] MEDS: PANTOPRAZOLE 40 MG VIAL IV SCH ×2 (08:24→16:39)
[2023-01-01] MEDS: ALBUTEROL SULFATE 2.5 MG/3 ML NEBULIZER INH SCH ×2 (08:25→22:00)
[2023-01-01] MEDS: UMECLIDINIUM 62.5 MCG INH SCH (08:25)
[2023-01-01] MEDS ORDERED: PHENYLephrine 1 MG/10 ML SYRINGE (ANEST) ONE (13:08)
[2023-01-01] MEDS ORDERED: GLYCOPYRROLATE 0.2 MG/ML VIAL IV ONE (13:08)
[2023-01-01] MEDS ORDERED: PROPOFOL 200 MG/20 ML VIAL IV ONE (13:08)
[2023-01-01] MEDS ORDERED: SUGAMMADEX SODIUM 200 MG/2 ML VIAL IV ONE (13:08)
[2023-01-01] MEDS ORDERED: ROCURONIUM 10 MG/ML ML IV ONE (13:08)
[2023-01-01] MEDS ORDERED: DEXAMETHASONE 10 MG/ML VIAL ONE (13:08)
[2023-01-01] MEDS ORDERED: LIDOCAINE HCL/PF 100 MG/5 ML SYRINGE IV ONE (13:08)
[2023-01-01] MEDS ORDERED: fentaNYL 100 MCG/2 ML VIAL IV ONE (13:08)
[2023-01-01] MEDS ORDERED: MAGNESIUM SULFATE 2 GM/50 ML BAG IV ONE (13:08)
[2023-01-01] MEDS ORDERED: ePHEDrine 50 MG/5 ML SYRINGE (ANEST) IV ONE (13:08)
[2023-01-01] MEDS ORDERED: KETAMINE 50 MG/ML Syringe (ANEST) IV ONE (13:08)
[2023-01-01] MEDS ORDERED: SUCCINYLCHOLINE 20 MG/ML ML IV ONE (13:08)
[2023-01-01] MEDS ORDERED: ONDANSETRON 4 MG/2 ML VIAL ONE (13:08)
--- NOTE | 2023-01-01 14:30 | Brief Operative Note ---
Brief Operative Note Date of procedure: 01/01/23 Pre-op diagnosis: ACUTE CHOLECYSTITIS WITH CHOLELITHIASIS Post-op diagnosis: other (ACUTE CHOLECYSTITI WITH CHOLELITHIASIS) Procedure: OPEN CHOLECYSTECTOMY Grafts/Implants: No (JUAREZ DRAIN X1) Anesthesia: GETA Findings: ACUTE SEVERE INFLAMMATION OF GALLBLADDER Complications: none Surgeon: Rashid Ugarte Estimated blood loss (cc): 20 Specimens Removed/Pathology: other (GALLBLADDER) Condition: stable Disposition: PACU
[2023-01-01] MEDS ORDERED: ONDANSETRON 4 MG/2 ML VIAL IV PRN (14:34)
[2023-01-01] MEDS ORDERED: IPRATROPIUM/ALBUTEROL 3 ML AMPUL.NEB NEB PRN (14:34)
[2023-01-01] MEDS ORDERED: HYDROmorphone 0.5 MG/0.5 ML SYRINGE IV PRN (14:34)
[2023-01-01] MEDS: fentaNYL 100 MCG/2 ML VIAL IV PRN ×4 (14:51→15:25)
[2023-01-02] MEDS: 0.9 % SODIUM CHLORIDE 1,000 ML IV SCH ×3 (00:36→12:07)
[2023-01-02] MEDS: ACETAMINOPHEN 1,000 MG/100 ML BAG IV SCH ×3 (02:02→13:10)
[2023-01-02] MEDS: CEFEPIME 2 GM VIAL IV SCH (06:16)
[2023-01-02] MEDS: PANTOPRAZOLE 40 MG VIAL IV SCH (07:11)
[2023-01-02 07:52] LABS: Basophils # (Auto) 0.01 K/mcL (0.00-0.30); Basophils % (Auto) 0.1 % (0.0-2.0); Eosinophils # (Auto) 0 K/mcL (0.00-0.70); Eosinophils % (Auto) 0 % (0.0-7.0); Hematocrit 39.4 % (40.1-51.0); Hemoglobin 13.5 g/dL (13.7-17.5); Lymphocytes # (Auto) 0.45 K/mcL (1.50-4.80); Lymphocytes % (Auto) 4.2 % (15.5-49.0); Mean Cell Volume 88.3 fL (80.0-100.0); Mean Corpuscular HGB Conc 34.3 g/dL (31.0-36.0); Mean Platelet Volume 11.2 fL (8.8-12.5); Monocytes # (Auto) 0.34 K/mcL (0.10-0.90); Monocytes % (Auto) 3.2 % (1.0-12.0); Neutrophils % (Auto) 92.1 % (38.0-78.0); Platelet Count 197 K/mcL (140-440); RBC 4.46 M/mcL (4.63-6.08); Red Cell Distribution Width 12.5 % (11.5-14.5); WBC 10.7 K/mcL (4.5-11.0)
[2023-01-02 08:05] LABS: ALT/SGPT 49 U/L (<40); AST/SGOT 49 U/L (<40); Alkaline Phosphatase 64 U/L (39-117); Bilirubin,Direct 0.3 mg/dL (<0.3); Bilirubin,Total 0.7 mg/dL (0.1-1.0); Blood Urea Nitrogen 10 mg/dL (8-23); Calcium 8.6 mg/dL (8.6-10.4); Carbon Dioxide 25 mmol/L (22-30); Chloride 104 mmol/L (96-108); Globulin 3.1 gm/dL (2.2-3.7); Glomerular Filtration Rate 85; Glucose 140 mg/dL (70-105); Lactate Dehydrogenase 180 U/L (135-225); Phosphorous 3.1 mg/dL (2.5-4.5); Triglycerides 68 mg/dL (<150); Uric Acid 3.6 mg/dL (2.5-8.0)
[2023-01-02] MEDS: amLODIPine 5 MG TABLET PO SCH (08:32)
[2023-01-02] MEDS: LOSARTAN 50 MG TABLET PO SCH (08:32)
[2023-01-02] MEDS: HYDROCHLOROTHIAZIDE 12.5 MG CAPSULE PO SCH (08:33)
[2023-01-02] MEDS: FLUTICASONE/SALMETEROL 250/50 INHALER #14 INH SCH (08:33)
[2023-01-02] MEDS: UMECLIDINIUM 62.5 MCG INH SCH (08:34)
[2023-01-02] MEDS: ALBUTEROL SULFATE 2.5 MG/3 ML NEBULIZER INH SCH (08:34)
--- NOTE | 2023-01-02 13:36 | Discharge Summary ---
Discharge Provider Provider IMPORTANT FOLLOW-UP INFORMATION FOR PCP: Patient information: Note initiated : 01/02/23 at 1:34 pm Service Date, if different from initiated Date: [] Patient: Tani Coyne 77 y/o M admitted on 12/31/22 for gas pains. Chief Complaint: [] Date of admission: 12/31/22 12:15 Discharge date: 01/02/23 Primary care physician: Ortega Larry PA-C Admitting clinician: Rashid Ugarte Attending physician on admission: Rashid Ugarte Consults: 12/31/22 Consult to Physician [CONS] Stat Comment: Consulting Provider: Rashid Ugarte Reason For Exam: Physician to Consult Consult to Physician [CONS] Stat Comment: Consulting Provider: David Sharpe Reason For Exam: Physician to Consult Attending physician on discharge: Rashid Ugarte Discharging clinician: Rashid Ugarte COURSE Hospital Course Hospital course: 77-year-old male with history of recurrent abdominal pain with nausea and vomiting. He was seen in the emergency room with findings of leukocytosis and gallstones. Open cholecystectomy was done on yesterday because of acute severe cholecystitis with cholelithiasis. Patient has done well and has tolerated full liquid diet. LFTs look good. White blood count is normal and patient is afebrile. He is stable for discharge home. Discharge diagnosis: Acute cholecystitis with cholelithiasis Secondary discharge diagnosis: Chronic obstructive lung disease Gastroesophageal reflux disease Reason for admission: Acute cholecystitis Procedures: Open cholecystectomy Complications: None Time Spent with Patient Time attestation: Total time spent providing and/or coordinating discharge services: Time spent: Less than 30 minutes Physical Examination Vital Signs Vital signs: Temp Pulse Resp BP Pulse Ox O2 Del Method O2 Flow Rate 98.7 F 72 20 134/65 91 Room Air 2 01/02/23 12:00 01/02/23 12:01/02/23 12:01/02/23 12:01/02/23 12:01/02/23 12:01/01/23 23:10 General physical appearance General physical exam: well developed, well nourished, moderate distress, moderate pain and chronically ill Eyes Eye exam: PERRL and normal ocular movement ENT ENT exam: no congestion Head Head exam IM: Present atraumatic, normal inspection and normocephalic Neck Neck exam: no masses, no bruits, trachea midline, no lymphadenopathy and no venous distension Cardiovascular Cardiovascular exam IM: Present normal rate and rhythm, RRR, +S1 and +S2; Absent JVD Respiratory Respiratory exam: normal expansion, normal respiratory effort and clear to auscultation Abdomen Abdomen: Present tender (Tender operative incision;) and distended (Mild distention) Integumentary Integumentary: Present no rash, no growths and no abnormal pigmentation Neurologic Neurologic: Present normal coordination and normal sensation Musculoskeletal Musculoskeletal: Present normal gait and normal posture Psychiatric Psychiatric: Present oriented to time, oriented to person, oriented to place, speech is normal and memory intact Discharge Plan Patient/Caregiver Discharge Instructions Activity: increase activity as tolerated Diet: Low Fat Prescriptions: New hydrocodone-acetaminophen 10-325 mg tablet 1 tab PO Q4H PRN (Reason: Pain) Qty: 30 0RF Continued amlodipine 5 mg tablet 5 mg PO QDAY 90 Days Qty: 90 3RF Rx Instructions: for high blood pressure losartan 100 mg tablet 100 mg PO QDAY 90 Days Qty: 90 3RF omeprazole 20 mg capsule,delayed release(DR/EC) 20 mg PO QAM 90 Days Qty: 90 1RF Rx Instructions: take first thing in the AM, report any breakthrough heartburn albuterol sulfate [ProAir HFA] 90 mcg/actuation HFA aerosol inhaler 2 puff INHALATION Q6H Qty: 8.5 2RF Rx Instructions: administer with spacer albuterol sulfate 2.5 mg /3 mL (0.083 %) solution for nebulization 2.5 mg inhalation BID Qty: 180 1RF fluticasone propion-salmeterol [Advair Diskus] 250-50 mcg/dose blister with device 1 inh inhalation BID Qty: 60 6RF Incruse Ellipta 62.5 mcg/actuation blister with device 1 inh INHALATION QDAY Qty: 30 6RF (DME) nebulizer See Rx Instructions .Route .MEDSUPPLY Qty: 1 0RF Rx Instructions: As directed hydrochlorothiazide 12.5 mg tablet 12.5 mg PO QDAY Prescription drug monitoring program results: PDMP not reviewed Follow Up Plan Follow up with: Ortega Larry PA-C [Primary Care Provider] - Rashid Ugarte MD [Physician] - (Office visit in 2 weeks) Patient Disposition: Home, Self-Care Prognosis: Good Rehab Potential: Good I certify that the patient requires SNF services: No Overall status at discharge: patient is progressing back to baseline Discharge Orders: Discharge Order (Routine); Ordered 01/02/23 Ordered By: Rashid Ugarte Pending Pending Pending: Resuscitation Status Resuscitate (Full Code) Diet Regular Diet Start SatJan 02 0800 Albuterol Sulfate (Albuterol Sulfate 2.5 Mg/3 Ml Nebulizer) 2.5 mg INH BID [facility] Last Admin: 01/02/23 08:34 Dose: 2.5 mg Documented By: Admin: 01/01/23 22:00 Dose: Not Given Documented By: Admin: 01/01/23 08:25 Dose: 2.5 mg Documented By: Admin: 12/31/22 21:21 Dose: Not Given Documented By: SAKSHI Amlodipine Besylate (Amlodipine 5 Mg Tablet) 5 mg PO QDAY [facility] Last Admin: 01/02/23 08:32 Dose: 5 mg Documented By: Admin: 01/01/23 08:23 Dose: 5 mg Documented By: COLBY Cefepime HCl (Cefepime 2 Gm Vial) 2 gm IV Q8H [facility]; Protocol Last Admin: 01/02/23 06:16 Dose: 2 gm Documented By: Admin: 01/01/23 23:14 Dose: 2 gm Documented By: Admin: 01/01/23 13:05 Dose: 2 gm Documented By: Admin: 01/01/23 06:26 Dose: 2 gm Documented By: Admin: 12/31/22 21:58 Dose: 2 gm Documented By: Admin: 12/31/22 17:11 Dose: 2 gm Documented By: CLARICE Fentanyl (Fentanyl 100 Mcg/2 Ml Vial) 50 mcg IV Q2HP PRN; Protocol PRN Reason: Per Pain Protocol Last Admin: 12/31/22 22:31 Dose: 50 mcg Documented By: ISABEL Hydrochlorothiazide (Hydrochlorothiazide 12.5 Mg Capsule) 12.5 mg PO DAILY [facility] Last Admin: 01/02/23 08:33 Dose: 12.5 mg Documented By: Admin: 01/01/23 08:23 Dose: 12.5 mg Documented By: COLBY Sodium Chloride (Sodium Chloride 0.9%) 1,000 mls @ 125 mls/hr IV .Q8H [facility] Last Admin: 01/02/23 12:07 Dose: Not Given Documented By: Admin: 01/02/23 10:15 Dose: 125 mls/hr Documented By: Infusion: 01/02/23 10:13 Dose: 0 mls/hr Documented By: Admin: 01/02/23 00:36 Dose: 125 mls/hr Documented By: Infusion: 01/01/23 23:57 Dose: 125 mls/hr Documented By: Admin: 01/01/23 15:57 Dose: 125 mls/hr Documented By: Infusion: 01/01/23 12:50 Dose: 125 mls/hr Documented By: Admin: 01/01/23 04:50 Dose: 125 mls/hr Documented By: Admin: 12/31/22 21:40 Dose: Not Given Documented By: Infusion: 12/31/22 20:52 Dose: 125 mls/hr Documented By: Admin: 12/31/22 12:52 Dose: 125 mls/hr Documented By: CLARICE Acetaminophen (Ofirmev) 1,000 mg in 100 mls @ 200 mls/hr IV Q6H [facility]; Protocol Last Infusion: 01/02/23 07:44 Dose: 0 mls/hr Documented By: Admin: 01/02/23 07:11 Dose: 200 mls/hr Documented By: Infusion: 01/02/23 06:41 Dose: 0 mls/hr Documented By: Admin: 01/02/23 02:02 Dose: 200 mls/hr Documented By: [email or web address] Infusion: 01/01/23 20:58 Dose: 200 mls/hr Documented By: [email or web address] Admin: 01/01/23 20:28 Dose: 200 mls/hr Documented By: [email or web address] Infusion: 01/01/23 15:30 Dose: 0 mls/hr Documented By: [email or web address] Admin: 01/01/23 14:58 Dose: 200 mls/hr Documented By: [email or web address] Infusion: 01/01/23 09:25 Dose: 0 mls/hr Documented By: Admin: 01/01/23 08:23 Dose: 200 mls/hr Documented By: COLBY Losartan Potassium (Losartan 50 Mg Tablet) 100 mg PO DAILY [facility] Last Admin: 01/02/23 08:32 Dose: 100 mg Documented By: Admin: 01/01/23 08:23 Dose: 100 mg Documented By: COLBY Pantoprazole Sodium (Pantoprazole 40 Mg Vial) 40 mg IV BIDAC [facility] Last Admin: 01/02/23 07:11 Dose: 40 mg Documented By: Admin: 01/01/23 16:39 Dose: 40 mg Documented By: Admin: 01/01/23 08:24 Dose: 40 mg Documented By: Admin: 12/31/22 17:11 Dose: 40 mg Documented By: CLARICE Umeclidinium [ Incruse Ellipta] 62. 5 Mcg Inhaler 1 dose INH DAILY [facility] Last Admin: 01/02/23 08:34 Dose: Not Given Documented By: Admin: 01/01/23 08:25 Dose: Not Given Documented By: COLBY Fluticasone/Salmeterol (Fluticasone/Salmeterol 250/50 Inhaler #14) 1 puff INH BID [facility] Last Admin: 01/02/23 08:33 Dose: Not Given Documented By: Admin: 01/01/23 20:31 Dose: Not Given Documented By: Admin: 01/01/23 08:23 Dose: Not Given Documented By: Admin: 12/31/22 21:58 Dose: Not Given Documented By: ISABEL Shift Summary 01/02/23 05:12 Shift Summary by Jennifer Rose Admitted 12/31 for cholelithiasis. Open laly on 01/01. HX: COPD; former smoker; ETOH (10+ years sober) Abdominal wounds w/hira & tegaderm; scant bloody drainage. GINA to right lower quad putting out serosanguineous drainage. Has denied pain, just having some mild discomfort. Up w/SBA to BR; usually voids per urinal. QS. Will d/c home when medically stable, possibly today. Initialized on 01/02/23 05:12 - END OF NOTE
== END 2023-01-02 14:52 | disposition home or self-care (01) ==
LOC: ED 00:31 → MEDSUR 00:31
PROVIDERS: ADMIT Family Medicine Adult Medicine; ATTEND Family Medicine Adult Medicine